=== PATIENT | female | born 1965 | race Caucasian/White ===

== ENCOUNTER 2017-11-29 03:21 | Emergency (ER) | payer SELFPAY ==
[2017-11-29] MEDS ORDERED: NS 1,000 ML IV ONE ×2 (03:26→03:27)
--- NOTE | 2017-11-29 03:29 | EDPHY ---
H & P Time Seen by Provider: 11/29/17 03:27 HPI/ROS: HPI CHIEF COMPLAINT: Syncope with head strike HISTORY OF PRESENT ILLNESS: 51-year-old female, arrived to [place] around 10 30 last night, it is now 330 in the morning. She flew from [place]. She did not eat anything throughout the day. Nor does she drink much fluid. She arrived this evening. She had 3 alcoholic beverages, additionally smoked marijuana, additionally did not eat any dinner. She had a syncopal episode. She states she felt very lightheaded, denies chest pain or shortness of breath. She fell backwards striking the left side of her head. Positive LoC brief episode. She presents emergency room by EMS. Currently denies any chest pain or shortness of breath. EN route by EMS she received 1 L of normal saline. Is feeling better. Past Medical History: Denies significant medical history Past Surgical History: Denies recent surgery Social History: Lives in [place]. Here last night to visit her son. Smokes marijuana drank alcohol this evening. Family History: Noncontributory ROS REVIEW OF SYSTEMS: 10 Systems were reviewed and negative with the exception of the elements mentioned in the history of present illness. Exam Constitutional triage nursing summary reviewed, vital signs reviewed, awake/ alert. Vital signs stable. Eyes normal conjunctivae and sclera, EOMI, PERRLA. HENT head/neck nontender down the neck, no neck pain, mild hematoma left posterior occiput, moist mucus membranes, no epistaxis, neck supple/ no meningismus, no raccoon eyes. Respiratory clear to auscultation bilaterally, normal breath sounds, no respiratory distress, no wheezing. Cardiovascular rate normal, regular rhythm, no murmur, no edema, distal pulses normal. Gastrointestinal soft, non-tender, no rebound, no guarding, normal bowel sounds, no distension, no pulsatile mass. Genitourinary no CVA tenderness. Musculoskeletal no midline vertebral tenderness, full range of motion, no calf swelling, no tenderness of extremities, no meningismus, good pulses, neurovascularly intact. Skin pink, warm, & dry, no rash, skin atraumatic. Neurologic awake, alert and oriented x 3, AAOx3, moves all 4 extremities equally, motor intact, sensory intact, CN II-XII intact, normal cerebellar, normal vision, normal speech. Psychiatric normal mood/affect. Heme/Lymph/Immune no lymphadenopathy. Differential Diagnosis: Includes but is not limited to in a particular order dehydration, electrolyte disturbance, orthostatic hypotension, combination alcohol, altitude, marijuana, dehydration leading to syncope. Medical Decision Making: Plan for this patient IV establishment with EKG, IV fluid bolus, full cardiac cath rn, check troponin, CT scan head without contrast for trauma. Re-evaluate. Re-evaluation: EKG interpretation by me on record in [employer] system. Impression time of EKG 3:49 a.m., sinus rhythm rate of 92 no signs of acute ischemia or cardiac arrhythmia. Unremarkable EKG. CT scan head without contrast negative for acute traumatic injury. No evidence of skull fracture brain bleed called to me by Dr. Mix. 0509: Patient is feeling better after 2 L of fluid. Patient no acute distress is resting comfortably. Patient denies chest pain or shortness of breath. She ambulated well to the bathroom without difficulty. Did not get nauseous and did not feel like she was going to pass out no lightheadedness. Most likely has syncopal episode due to the combination of flying today being dehydrated, not eating a food, drinking multiple beers, and smoking marijuana. Recommend while at altitude she stays well hydrated drink lots of fluid. Rest. Refrain from smoking marijuana drinking alcohol. Return emergency room if worsening symptoms including chest pain, shortness of breath, syncope. She feels comfortable being discharged home. Source: Patient, EMS Constitutional: Initial Vital Signs Temperature (C) 36.8 C 11/29/17 03:24 Heart Rate 86 11/29/17 03:24 Respiratory Rate 16 11/29/17 03:24 Blood Pressure 116/72 11/29/17 03:24 O2 Sat (%) 98 11/29/17 03:24 O2 Delivery Mode Room Air Allergies/Adverse Reactions: No Known Allergies Allergy (Unverified 11/29/17 03:29) Medical Decision Making - Data Points Laboratory Results: Laboratory Results 11/29/17 03:15 11/29/17 03:15 11/29/17 11/29/17 11/29/17 03:42 03:15 03:15 WBC 12.08 10^3/uL H 10^3/uL (3.80-9.50) RBC 4.60 10^6/uL 10^6/uL (4.18-5.33) Hgb 13.2 g/dL g/dL (12.6-16.3) Hct 40.0 % % (38.0-47.0) MCV 87.0 fL fL (81.5-99.8) MCH 28.7 pg pg (27.9-34.1) MCHC 33.0 g/dL g/dL (32.4-36.7) RDW 13.5 % % (11.5-15.2) Plt Count 320 10^3/uL 10^3/uL (150-400) MPV 10.1 fL fL (8.7-11.7) Neut % (Auto) 39.3 % % (39.3-74.2) Lymph % (Auto) 50.2 % H % (15.0-45.0) [place] % (Auto) 7.5 % % (4.5-13.0) Eos % (Auto) 2.1 % % (0.6-7.6) Baso % (Auto) 0.7 % % (0.3-1.7) Nucleat RBC Rel Count 0.0 % % (0.0-0.2) Absolute Neuts (auto) 4.75 10^3/uL 10^3/uL (1.70-6.50) Absolute Lymphs (auto) 6.06 10^3/uL H 10^3/uL (1.00-3.00) Absolute Monos (auto) 0.91 10^3/uL H 10^3/uL (0.30-0.80) Absolute Eos (auto) 0.25 10^3/uL 10^3/uL (0.03-0.40) Absolute Basos (auto) 0.08 10^3/uL 10^3/uL (0.02-0.10) Absolute Nucleated RBC 0.00 10^3/uL 10^3/uL (0-0.01) Immature Gran % 0.2 % % (0.0-1.1) Immature Gran # 0.02 10^3/uL 10^3/uL (0.00-0.10) RBC/WBC/PLT Morphology TNP Platelet Estimate TNP Sodium 141 mEq/L mEq/L (135-145) Potassium 4.3 mEq/L mEq/L (3.3-5.0) Chloride 104 mEq/L mEq/L (97-110) Carbon Dioxide 26 mEq/l mEq/l (22-31) Anion Gap 11 mEq/L mEq/L (8-16) BUN 18 mg/dL mg/dL (7-23) Creatinine 0.8 mg/dL mg/dL (0.6-1.0) Estimated GFR > 60 Glucose 131 mg/dL H mg/dL (70-100) Calcium 10.4 mg/dL mg/dL (8.5-10.4) Magnesium 2.2 mg/dL mg/dL (1.6-2.3) Total Bilirubin 0.2 mg/dL mg/dL (0.1-1.4) Conjugated Bilirubin 0.0 mg/dL mg/dL (0.0-0.5) Unconjugated Bilirubin 0.2 mg/dL mg/dL (0.0-1.1) AST 22 IU/L IU/L (14-46) ALT 31 IU/L IU/L (9-52) Alkaline Phosphatase 58 IU/L IU/L (38-126) POC Troponin I 0.00 ng/mL ng/mL (0.00-0.08) NT-Pro-B Natriuret Pep 46 pg/mL pg/mL (0-125) Total Protein 7.4 g/dL g/dL (6.3-8.2) Albumin 4.4 g/dL g/dL (3.5-5.0) Ethyl Alcohol 32 mg/dL H mg/dL (0-10) Medications Given: Discontinued Medications Sodium Chloride (Ns) 1,000 mls @ 0 mls/hr IV ONCE ONE PRN Reason: Wide Open Stop: 11/29/17 03:28 Last Admin: 11/29/17 04:10 Dose: 1,000 mls Point of Care Test Results: Chemistry 11/29/17 03:42 POC Troponin I 0.00 ng/mL ng/mL (0.00-0.08) Departure - Departure Disposition: Home, Routine, Self-Care Clinical Impression: Syncope, Dehydration Condition: Good Instructions: Dehydration (ED), Syncope (ED) Additional Instructions: 1. Rest. 2. Do not drink alcohol or smoke marijuana while at altitude. 3. Drink lots of fluids and stay well-hydrated while at altitude. 4. Take it easy. 5. Return if worse. Referrals: Patient,NotPresent [Unknown] - As per Instructions
[2017-11-29 03:39] LABS: PLATELET COUNT 320 10^3/uL (150-400)
[2017-11-29 05:10] VITALS: BP 128/75
--- NOTE | 2017-11-30 15:22 | CPEKG ---
Test Reason : OPEN Blood Pressure : / mmHG Vent. Rate : 092 BPM Atrial Rate : 092 BPM P-R Int : 201 ms QRS Dur : 090 ms QT Int : 364 ms P-R-T Axes : 089 028 080 degrees QTc Int : 451 ms Sinus rhythm Borderline prolonged SC interval Confirmed by Nasima Zee ([id number]) on 11/30/2017 3:22:21 PM Referred By: Confirmed By:Nasima Zee
== END 2017-11-29 05:27 | disposition home or self-care (01) ==
DX: R55 Syncope and collapse (principal); E86.0 Dehydration; W22.8XXA Striking against or struck by other objects, initial encounter; Y92.9 Unspecified place or not applicable
CPT/HCPCS: 84484-PO; G0480